=== PATIENT | female | born 1960 | race Caucasian/White ===

== ENCOUNTER 2018-01-13 07:27 | Emergency (ER) | payer MEDICARE ==
[~2018-01-13] VITALS: Ht 170.2 cm; Wt 141.5 kg
[~2018-01-13 07:27] MED LIST: CELEBREX; GENTAK 3 MG/M3 MG/M1 OP; PERCOCET 5-3251 EACH PO; PREDNISONE50 MG PO; VICODIN
[2018-01-13] MEDS ORDERED: ASPIR 8181 MG PO (07:51)
[2018-01-13 08:46] LABS: INFLUENZA A ANTIGEN None Detected (None Detect); INFLUENZA B ANTIGEN None Detected (None Detect)
[2018-01-13] MEDS ORDERED: DUONEB 2.5-0.5 M3 ML INH (08:52)
[2018-01-13] MEDS ORDERED: AZITHROMYCIN 2250 MG PO (08:52)
[2018-01-13] MEDS ORDERED: NEBULIZER MISCELL (08:52)
[2018-01-13] MEDS ORDERED: DELTASONE20 MG PO (08:52)
[2018-01-13 09:02] VITALS: BP 145/91
== END 2018-01-13 09:03 | disposition home or self-care (01) ==
LOC: M.ERS 07:27
PROVIDERS: Personal Emergency Response Attendant
DX: J40 Bronchitis, not specified as acute or chronic (principal); M19.90 Unspecified osteoarthritis, unspecified site; I48.91 Unspecified atrial fibrillation

== ENCOUNTER 2018-03-12 01:20 | Inpatient (IN) | payer MEDICARE ==
[2018-03-12] VITALS (7 sets, daily range): BP systolic 107–150; BP diastolic 65–85
[~2018-03-12] VITALS: Ht 170.2 cm; Wt 142.0 kg
[~2018-03-12 01:20] MED LIST changes: +ASPIR 8181 MG PO; +AZITHROMYCIN 2250 MG PO; +DELTASONE20 MG PO; +DUONEB 2.5-0.5 M3 ML INH; +NEBULIZER MISCELL
[2018-03-12 02:04] LABS: ABSOLUTE BASOPHILS 0.1 thou/uL (0.0-0.2); ABSOLUTE EOSINOPHILS 0.3 thou/uL (0.0-0.7); ABSOLUTE LYMPHOCYTES 3.3 thou/uL (0.8-5.3); ABSOLUTE MONOCYTES 0.7 thou/uL (0.0-1.2); ABSOLUTE NEUTROPHILS 8.4 thou/uL (1.6-8.1); BASOPHILS 0.9 %; HEMATOCRIT 43.6 % (37.0-47.0); HEMOGLOBIN 14.6 gm/dL (12.0-15.0); LYMPHOCYTES 25.7 %; MCHC 33.5 g/dL (28.0-37.0); MCV 86.5 fL (80.0-100.0); MONOCYTES 5.8 %; MPV 10.5 fl. (7.2-11.1); NUCLEATED RBCS 0 /100WBC; PLATELET COUNT* 224 thou/uL (150-400); POLYS 65.6 %; RBC 5.03 mil/uL (4.20-5.00); RDW-CV 14.3 % (10.5-14.5); WBC 12.9 thou/uL (4.0-11.0)
[2018-03-12 02:17] LABS: ANION GAP 8 mmol/L (7-16); BUN 18 mg/dL (7-18); CHLORIDE 103 mmol/L (98-107); CO2 29 mmol/L (21-32); CREATININE 0.9 mg/dL (0.6-1.3); GLUCOSE 167 mg/dL (70-99); POTASSIUM 4.1 mmol/L (3.5-5.1); SODIUM 140 mmol/L (136-145)
[2018-03-12 02:28] LABS: ALBUMIN 3.1 g/dL (3.4-5.0); ALKALINE PHOSPHATASE 65 U/L (46-116); LIPASE 126 U/L (73-393); NT-PRO BRAIN NAT PEPTIDE 43 pg/mL (<300); SGOT 38 U/L (15-37); SGPT 66 U/L (30-65); TOTAL BILIRUBIN 0.3 mg/dL (<0.1-1.0); TOTAL PROTEIN 7.1 g/dL (6.4-8.2); TROPONIN-I LEVEL <0.06 ng/mL (<0.06)
[2018-03-12 03:02] LABS: URINE BILIRUBIN NEGATIVE (Negative); URINE BLOOD NEGATIVE (Negative); URINE CLARITY CLEAR; URINE COLOR YELLOW; URINE GLUCOSE-RANDOM NEGATIVE (Negative); URINE KETONES NEGATIVE (Negative); URINE LEUKOCYTES-REFLEX NEGATIVE (Negative); URINE NITRITE-REFLEX NEGATIVE (Negative); URINE PROTEIN NEGATIVE (Negative); URINE UROBILINOGEN 0.2 E.U./dl (0.2-1.0)
--- NOTE | 2018-03-12 05:11 | NUR ---
PT ADMIT TO ROOM 232. PT ALERT ORIENTED. UP AD LUIS A IN ROOM. PT NOT SCORING A FALL RISK. PT AGREED TO CALL FOR ASSIST WHEN GETTING OUT OF BED. TELEMETRY SHOWS SR. WILL CONTINUE TO MONITOR.
--- NOTE | 2018-03-12 13:51 | NUR ---
Nutrition: Consult received for "obesity." Pt not in room at time of attempted visit, 13:35. Wt: 308#. RD left handouts on pt's table on wt management. Consider low risk.
--- NOTE | 2018-03-12 15:15 | 2DMMODE ---
[place] [address] 2 D/M-MODE ECHOCARDIOGRAM Name: MALICKROSINA CHIP Room: [place] [address] ADM IN [facility]#: [id number] Admission: 03/12/18 Attend Phys: Diego Dean Discharge: Date of : 62 Date of Service: 03/12/18 1515 Report #: [id number] THIS REPORT FOR: //name// APPROVED REPORT Study performed: 03/12/2018 11:29:58 EXAM: Comprehensive 2D, Doppler, and color-flow Echocardiogram Patient Location: In-Patient Room #: [facility] Status: routine BSA: 2.43 HR: 74 bpm BP: 107/65 mmHg Rhythm: NSR Other Information Study Quality: Good Indications Dyspnea Chest Pain 2D Dimensions LVEF(%): 72.69 (>50%) IVSd: 12.61 (7-11mm) LVOT Diam: 22.09 (18-24mm) LVDd: 55.68 mm PWd: 10.62 (7-11mm) Ascending Ao: 31.23 (22-36mm) LVDs: 32.15 (25-40mm) Aortic Root: 33.33 mm Shaw's LVEF: 72.69 % Volumes Left Atrial Volume (Systole) LA ESV Index: 27.60 mL/m2 Aortic Valve AoV Peak Dex.: 1.29 m/s AO Peak Gr.: 6.62 mmHg LVOT Max P.59 mmHg AO Mean Gr.: 3.81 mmHg LVOT Mean P.27 mmHg LVOT Max V: 1.07 m/s AO V2 VTI: 25.77 cm LVOT Mean V: 0.69 m/s NONA (VTI): 3.29 cm2 LVOT V1 VTI: 22.12 [place] [address] 2 D/M-MODE ECHOCARDIOGRAM Name: MALICKROSINA Room: [address] IN .R.#: [id number] Admission: 03/12/18 Attend Phys: Diego Dean Discharge: Date of : 62 Date of Service: 03/12/18 1515 Report #: [id number] E/A Ratio: 1.28 MV Decel. Time: 238.27 ms MV E Max Dex.: 0.64 m/s MV PHT: 69.10 ms MVA (PHT): 3.18 cm2 TDI E/Lateral E': 4.57 E/Medial E': 5.33 Medial E' Dex.: 0.12 m/s Lateral E' Dex.: 0.14 m/s Pulmonary Valve PV Peak Dex.: 1.40 m/s PV Peak Gr.: 7.83 mmHg Tricuspid Valve TR Peak Gr.: 29.18 mmHg RVSP: 34.00 mmHg Left Ventricle The left ventricle is normal size. There is normal LV segmental wall motion. There is normal left ventricular wall thickness. Left ventricular systolic function is normal. The left ventricular ejection fraction is within the normal range. LVEF is 55-60%. The left ventricular diastolic function is normal. Right Ventricle The right ventricle is normal size. The right ventricular systolic function is normal. Atria Left atrium is borderline dilated. The right atrium size is normal. Aortic Valve The aortic valve is normal in structure. No aortic regurgitation is present. There is no aortic valvular stenosis. Mitral Valve The mitral valve is normal in structure. Trace mitral regurgitation. No evidence of mitral valve stenosis. Tricuspid Valve The tricuspid valve is normal in structure. Trace tricuspid regurgitation. The RVSP is 30-35 mmHg. Pulmonic Valve The pulmonary valve is normal in structure. [place] [address] 2 D/M-MODE ECHOCARDIOGRAM Name: ROSINA TERESA CHIP Room: [address] IN .R.#: [id number] Admission: 03/12/18 Attend Phys: Diego Dean Discharge: Date of : 62 Date of Service: 03/12/18 1515 Report #: [id number] valvular regurgitation. Great Vessels The aortic root is normal in size. IVC is normal in size and collapses with >50% inspiration Pericardium There is no pericardial effusion. <Conclusion> The left ventricle is normal size. There is normal left ventricular wall thickness. Left ventricular systolic function is normal. The left ventricular ejection fraction is within the normal range. LVEF is 55-60%. The left ventricular diastolic function is normal. The right ventricle is normal size. Left atrium is borderline dilated. The aortic valve is normal in structure. The mitral valve is normal in structure. The tricuspid valve is normal in structure. Trace tricuspid regurgitation. The RVSP is 30-35 mmHg. IVC is normal in size and collapses with >50% inspiration There is no pericardial effusion. There is normal LV segmental wall motion. <ELECTRONICALLY SIGNED> By: Efraín Medrano MD, FACC 03/12/18 1515 1515 1515 Efraín Medrano MD, FACC /INF
--- NOTE | 2018-03-12 16:07 | EKG ---
[place] [address] ELECTROCARDIOGRAM REPORT Name: ROSINA TERESA Room: [place] [address] ADM IN .R.#: [id number] Admission: 03/12/18 Attend Phys: Dannie Hein Discharge: Date of : 62 Report #: [id number] THIS REPORT FOR: //name// [facility] ED Test Date: 2018-03-12 Test Time: 01:30:12 Pat Name: ROSINA TERESA Department: Room: [facility] Gender: F Jewel Sawyer: UNKNOWN : 1960 Requested By: Maryann Atkins Order Number: [id number] MD: Efraín Medrano Measurements Intervals [place] Rate: 97 P: 66 PA: 138 QRS: 59 QRSD: 90 T: 57 QT: 341 QTc: 433 Interpretive Statements Sinus rhythm No previous ECG available for comparison Electronically Signed On 03-12-2018 16:07:18 CDT by Efraín Medrano [email or web address] <ELECTRONICALLY SIGNED> By: Efraín Medrano MD, [facility] 03/12/18 1607 0130 9 Efraín Medrano MD, FACC /EPI
--- NOTE | 2018-03-12 19:06 | NUR ---
PATIENT SITTING UP IN BED AND WATCHING TV REMAINS A AND O X 4 NSR LUNGS CTA/DIM/RA GOOD APPETITE LAST BM T-1 UO GGOD, UNSEEN UP STANDBY IV SITE R FA 20 FA SL NO C/O PAIN CALL LIGHT IN REACH AND INSTRUCTION GIVEN AND FOLLOWED NPO AFTER MN FOR 2ND PART OF STRESS TEST 03/13, NO CAFFIENE
[2018-03-12 19:08] LABS: GLYCOHEMOGLOBIN (HGB A1C) 6.2 % (4.8-5.6)
[2018-03-13] VITALS (7 sets, daily range): BP systolic 118–139; BP diastolic 70–82
[2018-03-13 05:22] LABS: HEMATOCRIT 40.3 % (37.0-47.0); HEMOGLOBIN 13.6 gm/dL (12.0-15.0); MCH 29.3 pg (26.0-34.0); MCHC 33.8 g/dL (28.0-37.0); MCV 86.7 fL (80.0-100.0); MPV 9.8 fl. (7.2-11.1); RBC 4.65 mil/uL (4.20-5.00); RDW-CV 14.2 % (10.5-14.5); WBC 10.5 thou/uL (4.0-11.0)
[2018-03-13 05:56] LABS: ALBUMIN 3.1 g/dL (3.4-5.0); CALCIUM 8.6 mg/dL (8.5-10.1); CREATININE 0.8 mg/dL (0.6-1.3); MAGNESIUM 2.1 mg/dL (1.8-2.4); POTASSIUM 4.9 mmol/L (3.5-5.1); TOTAL BILIRUBIN 0.4 mg/dL (<0.1-1.0); TOTAL PROTEIN 6.6 g/dL (6.4-8.2)
--- NOTE | 2018-03-13 06:34 | NUR ---
A&O X4 CALM COOPERITVE. SR ON THE MONITOR. DENIES PAIN. NPO SINCE 0000 FOR STRESS TEST. ADLIB IN ROOM. VITALS WNL. SEE MAR. SEE CHARTING. HOURLY ROUNDING FOR SAFETY.
--- NOTE | 2018-03-13 09:04 | NUR ---
PT OFF UNIT FOR STRESS TEST
--- NOTE | 2018-03-13 09:14 | NUR ---
PT CARE ASSUMED AT 0700. ASSESSMENT COMPLETED. DENIES PAIN. PT ANXIOUS TO GET SOMETHING TO DRINK, WOULD REALLY LIKE A DIET DR ROMERO. INFORMED THE PT ABOUT NEW ULTRASOUND ORDER AND SCHEDULED STRESS TEST, AFTER WHICH WE WOULD GET HER SOMETHING TO EAT AND DRINK. PT WOULD LIKE TO GO HOME TODAY IF STRESS TEST IS NEGATIVE.
--- NOTE | 2018-03-13 11:15 | NUR ---
LEVAQUIN WAS STARTED PRIOR TO PT GOING TO [facility]. STOPPED WHILE PT OFF FLOOR, WAS GOING TO RESTART WHEN PT GOT BACK. PER DR MARCH, PT NO LONGER NEEDS ANTIBIOTICS, LEVAQUIN NOT RESTARTED
[2018-03-13] MEDS ORDERED: GLUCOPHAGE XR500 MG PO (11:29)
--- NOTE | 2018-03-13 15:45 | NUR ---
CM SPOKE TO THE PATIENT TO DISCUSS HOME SITUATION, DISCHARGE PLANNING, AND TO INFORM OF THE ROLE OF CM. PATIENT ALERT, ORIENTED, AND INDEPENDENT WITH ADL'S. PATIENT RESIDES AT HOME ALONE. PATIENT ABLE TO PERFORM HOLDER PILE DRIVING AND PREPARE MEALS. PATIENT OWNS A WALKER AND A CANE THAT SHE OCCAIONALLY USES FOR MOBILITY. PATIENT HAS NO HX OF HH OR SNF. PATIENT DOES NOT BELIEVE THAT SHE WILL HAVE ANY DISCHARGE PLANNING NEEDS. CM WILL REMAIN AVAILABLE TO ASSIST AND FOLLOW NEEDED.
--- NOTE | 2018-03-13 17:33 | CARDNUC ---
[place] [address] CARDIAC NUCLEAR IMAGING REPORT Name: MALICKANN MARIEROSINA KAY Room: [address] IN [facility]#: [id number] Admission: 03/12/18 Attend Phys: Diego Dean Discharge: Date of : 62 Date of Service: 03/13/18 1733 Report #: [id number] THIS REPORT FOR: //name// APPROVED REPORT Study performed: 03/12/2018 00:00:00 Exam: Nuclear Stress Test Indication: chest pain, dyspnea, left shoulder pain, dizzy Patient Location: In-Patient Room #: 233 Stress Tech: Nereida Foster Stress Nurse: Katiuska Ross RN NM Tech:KEYSHA Croft Ht: 5 ft 7 in Wt: 308 lbs BSA: 2.43 m2 BMI: 48.23 Medical History Medical History: a fib Medications: aspirin 81, enoxaparin Allergies: nkda Cardiac Risk Factors: tobacco Previous Cardiac Procedures: cardioversion ablation for a fib Exercise History: Indeterminate Stress Test Details Stress Test: Pharmacologic stress testing performed using 0.4 mg of regadenoson per 5 mL given IV over 10 seconds. Reason for pharmacologic stress test: physical limitation. Reversal agent Aminophyline 50 mg, given intravenously for other. HR Resting HR: 88 bpm Max Heart Rate (APMHR): 164 bpm Max HR Achieved: 107 bpm Target HR (85% APMHR): 139 bpm % of APMHR: 65 Recovery HR: 83 bpm BP Resting BP: 132/102 mmHg Max BP: 128/74 mmHg ECG Resting ECG: Sinus Rhythm, [place] [address] CARDIAC NUCLEAR IMAGING REPORT Name: ROSINA TERESA Room: [address] IN [facility]#: [id number] Admission: 03/12/18 Attend Phys: Diego Dean Discharge: Date of : 62 Date of Service: 03/13/18 1733 Report #: [id number] Stress ECG: Sinus Rhythm, normal EKG ST Change: None Arrhythmia: None Recovery ECG: Sinus Rhythm, normal EKG Recovery ST Change: None Recovery Arrhythmia: None Clinical Reason for Termination: Completed protocol Stress Symptoms: none Exercise duration: 0 min sec Exercise capacity: 1 METs The patient tolerated Lexiscan infusion without significant symptoms. Nurse Comments aminophylline used due to patient having to remain npo for other testing Stress ECG Conclusion The baseline 12-lead electrocardiogram showed normal sinus rhythm without ST or T wave abnormality. EKGs obtained during and post Lexiscan stress show sinus rhythm with no significant ST or T wave changes when compared to baseline. There were no stress-induced arrhythmias. NM EXAM: Myocardial Perfusion REST/STRESS Imaging Protocol: Rest Tc-99m/Stress Tc-99m 2 days Resting Data Rest SPECT myocardial perfusion imaging was performed in supine position 30 minutes following the intravenous injection of 35.0 mCi of Tc-99m Sestamibi. Time of rest injection: 1255 Date: 03/12/2018 Time of rest imagin The images were gated to evaluate regional wall motion and calculate left ventricular ejection fraction. Administration Route: IV Pharmacologic Stress Pharmacologic stress test was performed by injecting Regadenoson 0.4 mg IV push followed by the intravenous injection of 40.8 mCi of Tc-99m Sestamibi. Time of stress injection: 919 Date: 03/13/2018 Time of stress imagin Administration Route: [place] [address] CARDIAC NUCLEAR IMAGING REPORT Name: MALICKROSINA Room: [address] IN [facility].#: [id number] Admission: 03/12/18 Attend Phys: Diego Dean Discharge: Date of : 62 Date of Service: 03/13/18 1733 Report #: [id number] Gated Stress SPECT was performed 40 minutes after stress injection. The images were gated to evaluate regional wall motion and calculate left ventricular ejection fraction. Prone imaging was performed. Study Quality Study: Good Artifact: No artifact Study Data At rest, the left ventricular ejection fraction was 66%.. Post stress, the left ventricular ejection was 58%.. TID = 0.96. Perfusion Normal left ventricular perfusion. Wall Motion Normal left ventricular wall motion. Nuclear Conclusion ECG Findings: negative for ischemia Clinical Findings: negative for ischemia Nuclear Findings: negative for ischemia Exercise Capacity: not assessed Left Ventricular Function: normal Risk Study: low Myocardial perfusion images show no defect to suggest infarct or ischemia. Left ventricular systolic function is normal on gated studies. This is a low risk study. <Conclusion> The baseline 12-lead electrocardiogram showed normal sinus rhythm without ST or T wave abnormality. EKGs obtained during and post Lexiscan stress show sinus rhythm with no significant ST or T wave changes when compared to baseline. There were no stress-induced arrhythmias. <ELECTRONICALLY SIGNED> By: Vinod Yun MD, FACC 03/13/18 1733 173 173 Vinod Yun MD, FACC /INF
--- NOTE | 2018-03-13 18:46 | NUR ---
PT GIVEN DISCHARGE INSTRUCTIONS, EDUCATION MATERIALS AND RX CALLED IN. PT VERBALIZED UNDERSTANDING
[2018-03-14 02:10] LABS: HEPATITIS B SURFACE AG Negative (Negative)
== END 2018-03-13 18:48 | disposition home or self-care (01) | DRG 189 ==
LOC: M.ERS 01:20 → M.2W 03:10 → M.TBA-ER 03:10 → M.2W 03:43
PROVIDERS: Emergency Medicine; Internal Medicine; ADMIT Internal Medicine
DX: J96.00 Acute respiratory failure, unspecified whether with hypoxia or hypercapnia (principal); Z68.42 Body mass index [BMI] 45.0-49.9, adult; R65.10 Systemic inflammatory response syndrome (SIRS) of non-infectious origin without acute organ dysfunction; G47.30 Sleep apnea, unspecified; M19.90 Unspecified osteoarthritis, unspecified site; E66.9 Obesity, unspecified; G89.29 Other chronic pain; M54.9 Dorsalgia, unspecified; R73.9 Hyperglycemia, unspecified; I48.91 Unspecified atrial fibrillation; Z90.710 Acquired absence of both cervix and uterus; Z87.891 Personal history of nicotine dependence

== ENCOUNTER → 2019-03-17 | Outpatient (CLI) | payer OTHER ==
[~2019-03-17] MED LIST changes: +CARDIZEM CD120 MG PO; +ELIQUIS5 MG PO; +FLECAINIDE ACET50 M1 PO; +GLUCOPHAGE XR500 MG PO; +METFORMIN HCL500 MG PO
--- NOTE | 2019-03-18 11:44 | SLEEP ---
[address] [address] SLEEP STUDY REPORT Name: MALICKROSINA SAUNDERS Room: [facility]#: [id number] Admission: 03/17/19 Attend Phys: Elena Loredo Discharge: Date of : 62 Report #: [id number] THIS REPORT FOR: //name// CC: Elena Ames This study has been reviewed in its entirety by a board certified sleep specialist DATE OF SERVICE: 03/17/2019 Referred by Elena Loredo NP. The patient is 58-year-old who weighs 330 pounds with a BMI of 50.2. The patient's [place] score was 11. The patient underwent split night study performed at [facility]. During the night study, patient spent 372 minutes in bed and slept for 225 minutes with a sleep efficiency of 60% which was low. Sleep latency was 46 minutes with a REM latency of 96 minutes. Overall, sleep architecture showed normal stage 1 and stage 2 sleep and normal N3 sleep and increased REM sleep. During the initial diagnostic portion of the study, the patient slept for 65 minutes. During that time, the patient had 14 central apneas, no mixed apneas, 2 obstructive apneas and 60 hypopneas. The patient's apnea-hypopnea index was 70 per hour with a REM index of 75 per hour and a supine sleep was not observed. EKG monitoring revealed an average heart rate of 126 beats per minute. It was irregular and consistent with Atrial fibrillation. PLMS was seen at an index of 61 per hour and 21 per hour caused EEG arousals. Nocturnal oximetry study revealed an average oxygen saturation of 92%, the lowest of 43%. 10.9 minutes were spent in oxygen saturation of less than 89% and another 4.7 minutes with saturation of less than 79%. The patient met the criteria for CPAP initiation. She was started at 6 cm of water and titrated up to 17 cm water. At the final pressure, the patient slept for 36.5 minutes. The patient had 26 minutes of REM sleep. The patient had supine sleep throughout. The patient's AHI was reduced to 0 per hour and oxygen saturation remained above 93%. IMPRESSION: 1. Severe sleep apnea-hypopnea syndrome at an AHI of 72 per hour. 2. Nocturnal hypoxia secondary to obstructive sleep apnea, [place] [address] SLEEP STUDY REPORT Name: ROSINA TERESA Room: [facility]#: [id number] Admission: 03/17/19 Attend Phys: Elena Loredo Discharge: Date of : 62 Report #: [id number] CPAP. 3. Severe PLMS. They did improve while the patient slept on CPAP. 4. Atrial Fibrillation with rapid ventricular response.. RECOMMENDATIONS: 1. CPAP at 17 cm water completely eliminated the patient's sleep apnea and should be used on a nightly basis. 2. Follow up in 4-6 weeks to assess compliance with CPAP and to document clinical improvement. 3. Weight loss is strongly advised. 4. Avoid MANAGER PROTEIN depressants. 5. Cautioned regarding driving until symptoms of sleep apnea resolve with the use of CPAP. 6. The patient should also be further evaluated for symptoms of restless legs during the day. 7. Cardiology follow up. <ELECTRONICALLY SIGNED> By: Michele Mack MD 03/18/19 1144 1001 [id number] Nina Mack MD /nt
== END ==
LOC: M.SLEEPLAB 20:52
DX: G47.33 Obstructive sleep apnea (adult) (pediatric) (principal); G47.34 Idiopathic sleep related nonobstructive alveolar hypoventilation; G47.61 Periodic limb movement disorder; I48.91 Unspecified atrial fibrillation; Z68.43 Body mass index [BMI] 50.0-59.9, adult

== ENCOUNTER 2019-03-27 10:33 | Inpatient (IN) | payer OTHER ==
[~2019-03-27] VITALS: Ht 172.7 cm; Wt 145.1 kg
[2019-03-27 12:00] LABS: HEMATOCRIT 41.2 % (37.0-47.0); HEMOGLOBIN 13.7 gm/dL (12.0-15.0); MCH 28.6 pg (26.0-34.0); MCHC 33.4 g/dL (28.0-37.0); MCV 85.7 fL (80.0-100.0); MPV 10.7 fl. (7.2-11.1); RBC 4.81 mil/uL (4.20-5.00); RDW-CV 13.9 % (10.5-14.5); WBC 11.4 thou/uL (4.0-11.0)
[2019-03-27 12:05] VITALS: BP 148/86
[2019-03-27 12:19] LABS: ALBUMIN 3.4 g/dL (3.4-5.0); CALCIUM 9.3 mg/dL (8.5-10.1); CREATININE 0.8 mg/dL (0.6-1.3); POTASSIUM 4.1 mmol/L (3.5-5.1); TOTAL BILIRUBIN 0.4 mg/dL (<0.1-1.0); TOTAL PROTEIN 7.6 g/dL (6.4-8.2)
--- NOTE | 2019-03-27 14:52 | NUR ---
58 Y/O FEMALE ADMITTED TO TELEMETRY ROOM 208 WITH AN ADMITTING DIAGNOSIS OF AFLUTTER, SOTALOL LOADING. PT GIVEN SOTALOL PER EMAR. PT INITALLY AFIB/AFLUTTER WITH RATE IN THE 130'S, PT CONVERTED TO SINUS RHYTHM WITH RATE IN THE 80'S AT APPROXIMATELY 1321. PT DENIES PAIN, SOA, N/V/D. PT DENIES ANY FURTHER NEEDS AT THIS TIME. HOURLY ROUNDING IN PLACE FOR PT SAFETY. CLWR.
--- NOTE | 2019-03-27 15:00 | EKG ---
[place] [address] ELECTROCARDIOGRAM REPORT Name: MALICKROSINA Room: [address] ADM IN .R.#: [id number] Admission: 03/27/19 Attend Phys: Trevon Loyd MD, F Discharge: Date of : 62 Report #: [id number] THIS REPORT FOR: //name// [facility] Test Date: 2019-03-27 Test Time: 11:22:35 Pat Name: ROSINA TERESA Department: Room: [address] Gender: F Records Management Manager: : 1960 Requested By: Elena Loredo Order Number: [id number] MD: Trevon Loyd Measurements Intervals [place] Rate: 131 P: CT: QRS: 74 QRSD: 105 T: -26 QT: 310 QTc: 458 Interpretive Statements Atrial flutter with predominant 2:1 AV block Borderline T abnormalities, inferior leads Compared to ECG 03/06/2019 12:46:28 T-wave abnormality now present Sinus rhythm no longer present Electronically Signed On 03-27-2019 15:00:07 CDT by Trevon Loyd [email or web address] <ELECTRONICALLY SIGNED> By: Trevon Loyd MD, [facility] 03/27/19 1500 1122 1122 Trevon Loyd MD, [facility] /EPI
[2019-03-27 16:00] VITALS: BP 117/68
[2019-03-27 19:50] VITALS: BP 134/77
[2019-03-28] VITALS (8 sets, daily range): BP systolic 108–135; BP diastolic 55–72
--- NOTE | 2019-03-28 02:05 | NUR ---
RECIEVED REPORT AND ASSUMED CARE AT 1900. SENIOR ASIC ENGINEER IN PLACE. VITAL SIGNS STABLE. PT IS UP ADLIB. PT DENIED ANY PAIN AT THIS TIME. SHE DID STATE THAT SHE HAD A SHARP PAIN A FEW TIMES TO THE LEFT SIDE OF HER HEART ONLY FOR FEW SECONDS AND THEN IT WENT AWAY. ASSESSMENT COMPLETED DISCUSSED PLAN OF CARE AND PT UNDERSTANDS. BED LOCKED AND CALL LIGHT WITHIN REACH. HOURLY ROUNDING DONE AND ALL NEEDS MET. NURSING WILL CONTINUE TO MONITOR.
--- NOTE | 2019-03-28 03:39 | NUR ---
PT WORE CPAP MINS BEFORE REMOVING. EDUCATION GIVEN ON TX
--- NOTE | 2019-03-28 13:46 | EKG ---
[place] [address] ELECTROCARDIOGRAM REPORT Name: MALICKBRUNOH CHIP Room: [address] ADM IN ..#: [id number] Admission: 03/27/19 Attend Phys: Trevon Loyd MD, F Discharge: Date of : 62 Report #: [id number] THIS REPORT FOR: //name// [facility] Test Date: 2019-03-28 Test Time: 08:11:54 Pat Name: ROSINA TERESA Department: Room: [address] Gender: F Wall Covering Contractor: : 1960 Requested By: Elena Loredo Order Number: [id number] [place] MD: Trevon Loyd Measurements Intervals [place] Rate: 77 P: 61 MO: 173 QRS: 74 QRSD: 102 T: 81 QT: 404 QTc: 458 Interpretive Statements Sinus rhythm Low voltage, extremity leads Compared to ECG 03/27/2019 11:22:35 Low QRS voltage now present Atrial flutter no longer present Electronically Signed On 03-28-2019 13:46:14 CDT by Trevon Loyd [email or web address] <ELECTRONICALLY SIGNED> By: Trevon Loyd MD, [facility] 03/28/19 1346 0811 0811 Trevon Loyd MD, [facility] /EPI
--- NOTE | 2019-03-28 15:57 | NUR ---
ASSUMED PT CARE AT 0730, AOX4, UP AD LUIS A. O2 SAT AT 90's RA. TRACING SR ON TIPPING MACHINE OPERATOR. PT. COMPLAINS OF BACK PAIN. LAST BM TODAY, ABDOMEN SOFT AND ROUND. IV ACCESS INTACT. LUNGS SOUND CLEAR. VSS, AM ASSESSMENT CHARTED. MEDS GIVEN PER MAR. HOURLY ROUNDING. CALL LIGHT WITHIN REACH. WILL CONTINUE TO MONITOR.
--- NOTE | 2019-03-28 18:35 | NUR ---
PT AOX4, UP AD LUIS A. TRACING SR PVC ON TELE. PT FOR ACCU CHECK. PT REFUSED TO TAKE METFORMIN, DENIES HAVING DM. HAS BM TODAY. IV ACCESS INTACT SL. USE BIPAP. WAITING FOR CPAP AT HOME. PT HAS HEATING PAD FOR HER BACK PAIN. CALL LIGHT WITHIN REACH, HOURLY ROUNDING, WILL CONTINUE TO MONITOR.
--- NOTE | 2019-03-28 18:56 | NUR ---
I HAVE REVIEWED AND AGREE WITH THE ASSESMENT AND NOTES OF LOKESH Laguna RN ON 04/07/19
--- NOTE | 2019-03-29 02:58 | NUR ---
RECIEVED REPORT AND ASSUMED CARE AT 1900. INDUSTRIAL HEALTH ENGINEER IN PLACE. VITAL SIGNS STABLE. PT HAS SOME BACK PAIN AND PRN PAIN MEDS GIVEN ORDERED. ASSESSMENT COMPLETED DISCUSSED PLAN OF CARE AND PT UNDERSTANDS. BED LOCKED AND CALL LIGHT WITHIN REACH. FALL PRECAUTIONS IN PLACE. HOURLY ROUNDING DONE AND ALL NEEDS MET. NURSING WILL CONTINUE TO MONITOR.
[2019-03-29 07:30] VITALS: BP 130/73
--- NOTE | 2019-03-29 10:14 | NUR ---
ASSUMED PT CARE 0730, AOX4, UP AD LUIS A. PT DENIES PAIN. PT GOAL IS FOR DISCHARGE. TRACING SR ON OPERATIONS RESEARCH SCIENTIST. NO IV NOTED. FOR ACCU CHECK, REFUSED METFORMIN. LUNGS SOUND CLEAR. LAST BM TODAY. VSS, AM ASSESSMENT CHARTED. MEDS GIVEN PER MAR. CALL LIGHT WITHIN REACH. WILL CONTINUE TO MONITOR
[2019-03-29] MEDS ORDERED: SORINE 80 MG TA80 MG PO (11:22)
[2019-03-29 11:24] VITALS: BP 108/59
--- NOTE | 2019-03-29 12:50 | NUR ---
DISCUSSED DISCHARGE PLAN TO PT. MEDICATION PACKET/ SCRIPT GIVEN. REMINDED TO FOLLOW UP WITH CHEMICAL PLANT OPERATOR, PCP. COMMUNICATES UNDERSTANDING. TELE REMOVED. ACTIVITY TOLERATED. PT ADVISED TO LOW SODUIM/ 1600 ALESSANDRA DIET. ALL BELONGINGS CHECKED AND PACKED. LEFT THE UNIT 1210 AMBULATORY WITH DAUGHTER.
--- NOTE | 2019-03-29 17:49 | NUR ---
I HAVE REVIEWED AND AGREE WITH THE CHARTING OF LOKESH Laguna RN ON 03/29/19
--- NOTE | 2019-03-30 14:38 | D ---
[address] [address] DISCHARGE SUMMARY Name: MALICKROSINA SAUNDERS Room: [address] IN [place].#: [id number] Admission: 03/27/19 Attend Phys: Trevon Loyd MD, F Discharge: 03/29/19 Date of : 62 Report #: [id number] THIS REPORT FOR: //name// CC: DR CHASIDY Ames DATE OF SERVICE: 03/29/2019 DISCHARGE DIAGNOSES: 1. Paroxysmal atrial fibrillation. 2. Sleep apnea. 3. Tobacco abuse. 4. Chronic back pain. CONSULTANTS: None. PROCEDURES: None. HISTORY OF PRESENT ILLNESS: The patient is a 58-year-old single white female who had a history of paroxysmal atrial fibrillation. She has had previous atrial fibrillation, cardioversion, followed by ablation at [facility] in 2010. Recently, she had been on no medications. She presented to [place] in February with chest pain. She was seen by my nurse practitioner, Brenna Vizcaino, at that time. She underwent an echocardiogram in February that showed ejection fraction of 60%. She underwent a nuclear stress test in February that showed no evidence of ischemia with a normal ejection fraction. It is felt her chest pain was noncardiac. She had recurrent atrial fibrillation and underwent a BLANK by Dr. Yun. This showed ejection fraction 60% with no thrombus. A small PFO was noted. She was in atrial flutter and was cardioverted to sinus rhythm. She was placed on flecainide. She was discharged on Eliquis post-cardioversion. She underwent an outpatient sleep study, which showed sleep apnea. During the sleep study, she was noted to have intermittent atrial flutter, and she was told to increase her flecainide to 100 mg twice a day. She was seen by my nurse practitioner in the Cardiology Clinic on 03/26. She is noted to be in atrial flutter at 130 beats per minute. She has been at this time for discontinuing flecainide and starting sotalol. PAST MEDICAL HISTORY: Significant for chronic back pain, hysterectomy, cholecystectomy, diabetes. MEDICATIONS: On admission included metformin, Eliquis, diltiazem, flecainide. PHYSICAL EXAMINATION: VITAL SIGNS: Her blood pressure was 120/60, pulse 80, she is afebrile. HEENT: She was anicteric, [place] [address] DISCHARGE SUMMARY Name: ROSINA TERESA Room: [address]#: [id number] Admission: 03/27/19 Attend Phys: Trevon Loyd MD, F Discharge: 03/29/19 Date of : 62 Report #: [id number] CHEST: Clear to auscultation. CARDIOVASCULAR: Regular rate and rhythm. ABDOMEN: Obese. EXTREMITIES: Had no edema. Her ECG on admission showed atrial flutter with a 2:1 ventricular response rate. Her workup included carotid Doppler study in February that showed no significant stenosis. Her chest x-ray in February had showed mild cardiomegaly, no pulmonary edema. LABORATORY DATA: Sodium 140, creatinine 0.8, glucose 119. Liver function studies were normal. TSH in February was 1.8. White blood cell count 11.4, hemoglobin 13.7. HOSPITAL COURSE: The patient was admitted to a monitored bed. She was noted to be converted to a sinus rhythm. She was taken off flecainide and started on sotalol 80 mg twice a day. She developed no recurrent atrial flutter, arrhythmias nor QT prolongation. Prior to discharge, she is ambulating, had no further complaints. She was discharged on the Eliquis 5 mg twice a day. If she remains in sinus rhythm, the plan will be to stop the Eliquis in the future because of her low ESTHER score. She was to continue diltiazem CD 180 mg a day. She was to stop the flecainide, continue metformin 500 mg twice a day, and she was started on sotalol 80 mg twice a day. She was discharged to return to the care of Dr. Ames for routine medical care. I strongly recommended she attempt to stop smoking. She is to contact my office if she had recurrent palpitations or bleeding. She is scheduled to see my nurse practitioner in 3 weeks. I did recommend she start an exercise program and attempt to lose weight. <ELECTRONICALLY SIGNED> By: Trevon Loyd MD, [facility] 03/30/19 1438 1053 1220Davidylan Loyd MD, FAC /nt
== END 2019-03-29 12:07 | disposition home or self-care (01) | DRG 309 ==
LOC: M.2W 10:33 → M.TBA 14:47 → M.2W 03-29 12:07
PROVIDERS: Registered Nurse; ADMIT Internal Medicine Cardiovascular Disease
PROC: 5A09357 Assistance with Respiratory Ventilation, Less than 24 Consecutive Hours, Continuous Positive Airway Pressure (ICD-10-PCS; principal; 2019-03-28)
PROC: 5A09357 Assistance with Respiratory Ventilation, Less than 24 Consecutive Hours, Continuous Positive Airway Pressure (ICD-10-PCS; 2019-03-29)
DX: I48.92 Unspecified atrial flutter (principal); Z68.42 Body mass index [BMI] 45.0-49.9, adult; I48.0 Paroxysmal atrial fibrillation; E66.01 Morbid (severe) obesity due to excess calories; F17.200 Nicotine dependence, unspecified, uncomplicated; G89.29 Other chronic pain; I34.0 Nonrheumatic mitral (valve) insufficiency; M54.9 Dorsalgia, unspecified; G47.33 Obstructive sleep apnea (adult) (pediatric); M19.90 Unspecified osteoarthritis, unspecified site; E11.9 Type 2 diabetes mellitus without complications; Z79.84 Long term (current) use of oral hypoglycemic drugs; Z79.899 Other long term (current) drug therapy; Z90.710 Acquired absence of both cervix and uterus; Z90.49 Acquired absence of other specified parts of digestive tract; Z71.6 Tobacco abuse counseling

== ENCOUNTER → 2019-08-11 | Outpatient (CLI) | payer OTHER ==
[~2019-08-11] MED LIST changes: +SORINE 80 MG TA80 MG PO
== END ==
LOC: M.ULTRA 08:34
DX: R22.41 Localized swelling, mass and lump, right lower limb (principal); Z88.8 Allergy status to other drugs, medicaments and biological substances

== ENCOUNTER → 2021-08-25 | Outpatient (CLI) | payer MEDICARE ==
[~2021-08-25] MED LIST changes: +CELEBREX100 MG/1 C PO; +PRADAXA150 MG PO; +SORINE 80 MG TA80 M1 PO; +SOTALOL 120 MG120 M1 PO; +TYLENOL EXTRA500 MG PO; +XARELTO20 MG PO
--- NOTE | 2021-08-25 08:56 | NUR ---
CARDIOVERSION WAS NOT DONE ON PATIENT SHE SHOWED SINUS RHYTHM WHEN WE DID EKG. WAS CALLED TO VERIFY AND SHE WAS SENT HOME WITHOUT DOING PROCEDURE (CARDIOVERSION)
--- NOTE | 2021-08-25 11:24 | EKG ---
[place] [address] ELECTROCARDIOGRAM REPORT Name: ROSINA TERESA Room: [facility]#: [id number] Admission: 08/25/21 Attend Phys: Alhaji Russell Discharge: Date of : 62 Date of Service: 08/25/21 0849 Report #: [id number] THIS REPORT FOR: //name// [facility] Test Date: 2021-08-25 Test Time: 08:49:56 Pat Name: ROSINA TREESA Department: Room: Gender: F Baker Bench: : 1960 Requested By: Trevon Loyd Order Number: [id number] Helen MD: Trevon Loyd Measurements Intervals [place] Rate: 59 P: 74 ME: 170 QRS: 47 QRSD: 111 T: 46 QT: 505 QTc: 501 Interpretive Statements Sinus rhythm Borderline prolonged QT interval Compared to ECG 03/28/2019 08:11:54 No significant changes Electronically Signed On 08-25-2021 11:24:14 CDT by Trevon Loyd [email or web address] <ELECTRONICALLY SIGNED> By: Trevon Loyd MD, [facility] 08/25/21 1124 0849 0849 Trevon Loyd MD, [facility] /EPI
== END ==
LOC: M.CL 08:19
PROVIDERS: ATTEND Internal Medicine Cardiovascular Disease
DX: I48.91 Unspecified atrial fibrillation (principal); I10 Essential (primary) hypertension; E11.9 Type 2 diabetes mellitus without complications; G47.33 Obstructive sleep apnea (adult) (pediatric); Z79.899 Other long term (current) drug therapy